=== PATIENT | female | born 1995 | race Caucasian/White ===

== ENCOUNTER 2019-05-11 03:07 | Emergency (ER) | payer MEDICAID, OTHER ==
[~2019-05-11] VITALS: Ht 167.6 cm; Wt 99.5 kg
[2019-05-11 03:13] VITALS: BP 160/103
[2019-05-11] MEDS ORDERED: ONDANSETRON ODT 4 MG PO ONE (03:30)
[2019-05-11] MEDS ORDERED: FLUCONAZOLE 100 MG TABLET PO ONE (03:30)
[2019-05-11] MEDS ORDERED: HYDROcodone/APAP 5/325 TABLET PO ONE (03:30)
[2019-05-11 03:47] LABS: BASOPHILS # (AUTO) 0.04 x10^3/uL (0-0.1); BASOPHILS % (AUTO) 0 % (0-1); EOSINOPHILS % (AUTO) 3 % (1-7); LYMPHOCYTES # (AUTO) 2.45 x10^3/uL (1-3.4); LYMPHOCYTES % (AUTO) 25 % (22-44); MD NO; MEAN CORPUSCULAR HEMOGLOBIN 28.8 pg (27.0-34.8); MEAN CORPUSCULAR HGB CONC 33.3 g/dL (32.4-35.8); MEAN CORPUSCULAR VOLUME 86.5 fL (80-100); MEAN PLATELET VOLUME 6.9 fL (7.4-10.4); MONOCYTES # (AUTO) 0.68 x10^3/uL (0.2-0.8); MONOCYTES % (AUTO) 7 % (2-9); NEUTROPHILS % (AUTO) 65 % (42-75); PLATELET COUNT 414 x10^3/uL (130-400); RED BLOOD COUNT 5.03 x10^6/uL (3.82-5.3); RED CELL DISTRIBUTION WIDTH 13.2 % (9.6-15.2)
[2019-05-11] MEDS ORDERED: FLUCONAZOLE 100 MG TABLET ONE (03:48)
[2019-05-11] MEDS ORDERED: ONDANSETRON ODT 4 MG ONE (03:48)
[2019-05-11] MEDS ORDERED: HYDROcodone/APAP 5/325 TABLET ONE (03:49)
--- NOTE | 2019-05-11 03:57 | NUR ---
PT MEDICATED PER MAR.
[2019-05-11 03:58] LABS: ALANINE AMINOTRANSFERASE 29 U/L (12-78); ALBUMIN 3.8 g/dL (3.4-5.0); ANION GAP 5 mmol/L (5-15); CALCIUM 8.7 mg/dL (8.5-10.1); CHLORIDE 110 mmol/L (98-107); CREATININE 0.77 mg/dL (0.55-1.02)
[2019-05-11 04:03] LABS: ALKALINE PHOSPHATASE 75 U/L (45-117); BILIRUBIN,TOTAL 0.3 mg/dL (0.2-1.0); TOTAL PROTEIN 7.9 g/dL (6.4-8.2)
[2019-05-11 04:27] LABS: MICROSCOPIC AUTO
[2019-05-11 04:35] LABS: CULTURE INDICATED? YES
--- NOTE | 2019-05-11 05:54 | NUR ---
PT D/C WITH D/C SUMMARY AND SCRIPTS. ALL QUESTIONS ANSWERED. PT PROVIDED WITH DR RUIZ FOR WORK PER PT REQUEST. PT DENIES ANY OTHER NEEDS PERTAINING TO THIS VISIT AND AMBULATES TO REGISTRATION DESK WITH STEADY GAIT FOR D/C HOME.
== END 2019-05-11 06:01 | disposition home or self-care (01) ==
LOC: ED 05:32
DX: N30.00 Acute cystitis without hematuria (principal); K59.00 Constipation, unspecified; B37.3 Candidiasis of vulva and vagina; R07.89 Other chest pain; F17.200 Nicotine dependence, unspecified, uncomplicated
CPT/HCPCS: 36415; 74022; 80053; 81001; 83690; 84703; 85025; 87081; 87086; 87147; 87880; 93005; 99284; Q0162

== ENCOUNTER 2019-06-16 16:08 | Emergency (ER) | payer OTHER ==
[~2019-06-16] VITALS: Ht 167.6 cm; Wt 98.3 kg
[2019-06-16] MEDS ORDERED: DEXAMETHASONE 4 MG/ML, 1ML ONE (16:40)
[2019-06-16 16:48] LABS: BASOPHILS # (AUTO) 0.08 x10^3/uL (0-0.1); BASOPHILS % (AUTO) 1 % (0-1); EOSINOPHILS % (AUTO) 1 % (1-7); LYMPHOCYTES # (AUTO) 1.87 x10^3/uL (1-3.4); LYMPHOCYTES % (AUTO) 11 % (22-44); MD NO; MEAN CORPUSCULAR HEMOGLOBIN 28.1 pg (27.0-34.8); MEAN CORPUSCULAR HGB CONC 33.2 g/dL (32.4-35.8); MEAN CORPUSCULAR VOLUME 84.6 fL (80-100); MONOCYTES # (AUTO) 0.98 x10^3/uL (0.2-0.8); MONOCYTES % (AUTO) 6 % (2-9); NEUTROPHILS # (AUTO) 13.82 x10^3/uL (1.8-6.8); NEUTROPHILS % (AUTO) 82 % (42-75); PLATELET COUNT 387 x10^3/uL (130-400); RED BLOOD COUNT 5.35 x10^6/uL (3.82-5.3); RED CELL DISTRIBUTION WIDTH 13.4 % (9.6-15.2)
[2019-06-16 16:58] LABS: ALBUMIN 3.7 g/dL (3.4-5.0); ANION GAP 7 mmol/L (5-15); CALCIUM 8.9 mg/dL (8.5-10.1); CHLORIDE 110 mmol/L (98-107)
[2019-06-16] MEDS ORDERED: SODIUM CHLORIDE 0.9% 1,000ML IVBOLUS ONE (17:00)
[2019-06-16] MEDS ORDERED: AMPICILLIN/SULBACTAM 3 GM in SODIUM CHLORIDE 0.9% 100 ML IV ONE (17:00)
[2019-06-16] MEDS ORDERED: DEXAMETHASONE 4 MG/ML, 1ML IVPush ONE (17:00)
[2019-06-16 17:03] LABS: ALANINE AMINOTRANSFERASE 22 U/L (12-78); ALKALINE PHOSPHATASE 72 U/L (45-117); BILIRUBIN,TOTAL 0.9 mg/dL (0.2-1.0); TOTAL PROTEIN 8.3 g/dL (6.4-8.2)
--- NOTE | 2019-06-16 17:24 | NUR ---
PT HAS CO OF SORE THROAT, COUGH SINCE YESTERDAY. INCREASED WEAKNESS. SYMPTOMS WORSENED TODAY. 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 IV ESTABLISHED, FLUIDS INFUSING, LABS DRAWN, ABX INFUSING.
[2019-06-16] MEDS ORDERED: SODIUM CHLORIDE FLUSH 10ML SYR IVF ONE (17:30)
[2019-06-16] MEDS ORDERED: OMNIPAQUE 350 MG/ML, 100ML BOTTLE ONE (17:40)
[2019-06-16 17:51] VITALS: BP 170/101
--- NOTE | 2019-06-16 18:02 | NUR ---
Patient/Caregiver given discharge instructions and they have confirmed that they understand the instructions. Patient ambulatory with steady gait.
== END 2019-06-16 18:05 | disposition home or self-care (01) ==
LOC: ED 17:36
DX: J03.00 Acute streptococcal tonsillitis, unspecified (principal); I10 Essential (primary) hypertension; M79.10 Myalgia, unspecified site
CPT/HCPCS: 36415; 70491; 80053; 84703; 85025; 87880; 93005; 96365; 96375; 99284; J0295; J1100; J7030; Q9967

== ENCOUNTER 2019-09-06 11:16 | Emergency (ER) | payer SELFPAY ==
[~2019-09-06] VITALS: Ht 167.6 cm; Wt 101.6 kg
[2019-09-06 11:19] VITALS: BP 172/103
--- NOTE | 2019-09-06 12:03 | NUR ---
PT HAS CO SOB, DRY COUGH FOR 1 MONTH. MDI ISNT WORKING. AFEBRILE. DENIES N/V/D
--- NOTE | 2019-09-06 12:04 | NUR ---
Patient/Caregiver given discharge instructions and they have confirmed that they understand the instructions. Patient ambulatory with steady gait.
== END 2019-09-06 12:06 | disposition home or self-care (01) ==
LOC: ED 11:37
DX: J45.30 Mild persistent asthma, uncomplicated (principal); I10 Essential (primary) hypertension; F17.200 Nicotine dependence, unspecified, uncomplicated
CPT/HCPCS: 99283